=== PATIENT | male | born 1940 | race Caucasian/White ===

== ENCOUNTER 2016-09-24 08:23 | Emergency (ER) | payer OTHER, BC ==
[~2016-09-24] VITALS: Ht 188 cm; Wt 106.6 kg
[~2016-09-24 08:23] MED LIST: FLOMAX0.4 MG PO; LEXAPRO 10 MG T10 M1 PO; MIRAPEX ER2.25 MG PO; MOBIC15 MG PO; SINEMET CR 25-1 EACH PO; VENLAFAXINE HCL25 MG PO
[2016-09-24 09:00] LABS: HEMATOCRIT 43.4 % (42.0-52.0); MCH 31.5 pg (26.0-34.0); MCHC 34.7 g/dL (28.0-37.0); PLATELET COUNT 252 thou/uL (150-400); RBC 4.77 mil/uL (4.50-6.00); RDW 12.4 % (10.5-14.5); WBC 9.2 thou/uL (4.0-11.0)
[2016-09-24] MEDS ORDERED: AMANTADINE100 M1 PO (09:00)
[2016-09-24 09:02] LABS: MANUAL DIFF YES
[2016-09-24] MEDS ORDERED: CARBIDOPA-LEVO1 EAC9 PO (09:02)
[2016-09-24] MEDS ORDERED: NYAMYC15 GM TOP (09:04)
[2016-09-24] MEDS ORDERED: ARICEPT 5 MG TAB5 MG PO (09:05)
[2016-09-24] MEDS ORDERED: AZILECT1 MG PO (09:05)
[2016-09-24] MEDS ORDERED: OXYBUTYNIN 5 MG5 M2 PO (09:05)
[2016-09-24 09:12] LABS: CALCIUM 9.2 mg/dL (8.5-10.1); POTASSIUM 4.4 mmol/L (3.5-5.1)
[2016-09-24 09:53] LABS: ABSOLUTE NEUTROPHILS 7.5 thou/uL (1.4-8.2); LARGE PLATELETS FEW; TOTAL CELL COUNT 100
[2016-09-24 10:21] VITALS: BP 127/80
== END 2016-09-24 09:44 | disposition home or self-care (01) ==
LOC: ER 08:23
PROVIDERS: Emergency Medicine
DX: L03.114 Cellulitis of left upper limb (principal); G20 Parkinson's disease; Z88.1 Allergy status to other antibiotic agents; F17.210 Nicotine dependence, cigarettes, uncomplicated; F10.99 Alcohol use, unspecified with unspecified alcohol-induced disorder